=== PATIENT | male | born 1970 | race Caucasian/White ===

== ENCOUNTER 2017-10-14 06:57 | Observation (INO) ==
--- NOTE | 2017-10-14 07:34 | ED ---
HPI General Chief Complaint: Chest Pain Stated Complaint: chest pains, left arm pain Time Seen by Provider: 10/14/17 07:17 Source: patient History of Present Illness HPI narrative: This patient complains of chest pain. He woke up in the middle night around 2 or 3 AM with a sternal chest heaviness. It lasted about 30 minutes and resolved. It has not reoccurred. Today he is pain-free.He has no history of cardiac disease. He is a hypertensive patient. Severity was moderate. No alleviating factors.No exacerbating factors. Complete Quality Measures for STEMI Alert Patients Related Data Home Medications Medication Instructions Recorded Confirmed Plavix 75 mg PO DAILY 10/14/17 10/14/17 amlodipine 5 mg PO DAILY 10/14/17 10/14/17 hydrochlorothiazide 12.5 mg PO DAILY 10/14/17 10/14/17 metoprolol succinate 50 mg PO DAILY 10/14/17 10/14/17 Allergies Allergy/AdvReac Type Severity Reaction Status Date / Time No Known Allergies Allergy Unverified 10/14/17 07:13 Review of Systems Except as stated in HPI: all other systems reviewed are negative [facility] Medical History Medical History Hypertension (Acute) Stroke (Acute) Surgical History Surgical History No history of previous surgery (Acute) Social History Social History Second Hand Smoke Exposure: No Smoking Status: Never smoker How Often Do You Have a Drink Containing Alcohol: Never Recent Travel in [facility] within the Last 8 Weeks: No Recent Out of Country Travel within the Last 8 Weeks: No Immunization History Tetanus Immunization: <5 Years Hx Influenza Vaccine This Season: Yes Exam Narrative Exam Narrative: GENERAL: Well-nourished, well-developed patient in no apparent distress. SKIN: Focused skin assessment reveals no rash and nodules. Skin is Warm and dry. HEAD: Atraumatic. Normocephalic. EYES: Pupils equal and round. No scleral icterus. No injection or drainage. ENT: No nasal bleeding or discharge. Mucous membranes pink and moist. NECK: Trachea midline. No JVD. CARDIOVASCULAR: Regular rate and rhythm. No murmur appreciated. RESPIRATORY: No accessory muscle use. Clear to auscultation. Breath sounds equal bilaterally. GASTROINTESTINAL: Abdomen soft, non-tender, nondistended. Hepatic and splenic margins not palpable. MUSCULOSKELETAL: No obvious deformities. No clubbing. No cyanosis. No edema. NEUROLOGICAL: Awake and alert. No obvious cranial nerve deficits. Motor grossly within normal limits. Normal speech. PSYCHIATRIC: Appropriate mood and affect; insight and judgment normal. Course Initial Documented Vital Signs Temperature 98.7 F 10/14/17 07:00 Pulse Rate 105 H 10/14/17 07:00 Respiratory Rate 18 10/14/17 07:00 Blood Pressure 172/99 H 10/14/17 07:00 Pulse Oximetry 98 10/14/17 07:00 Last Documented Vital Signs Temperature 98.7 F 10/14/17 07:00 Pulse Rate 105 H 10/14/17 09:33 Respiratory Rate 14 10/14/17 09:33 Blood Pressure 180/93 H 10/14/17 09:33 Pulse Oximetry 99 10/14/17 09:35 Medical Decision Making MDM Narrative Medical decision making narrative: GENERAL: Well-nourished, well-developed patient in no apparent distress. SKIN: Focused skin assessment reveals no rash and nodules. Skin is Warm and dry. HEAD: Atraumatic. Normocephalic. EYES: Pupils equal and round. No scleral icterus. No injection or drainage. ENT: No nasal bleeding or discharge. Mucous membranes pink and moist. I reviewed the EKG which shows sinus rhythm with no ST elevation IV placed and labs sent. I gave him an aspirin. He has not had any prior stress testing or cardiac evaluation. I reviewed the chest x-ray which is normal. Patient will be a 23 hour observation in the chest pain center in order to rule out cardiac cause of his symptoms. He is agreeable. Differential Diagnosis Differential Diagnosis: Differential diagnosis includes NM, angina, pericarditis , pleurisy, GERD, anxiety. Medical Records Medical records reviewed: Yes I reviewed the patient's medical records. Lab Data Lab results reviewed: Yes I reviewed the patient's lab results. Result diagrams: 10/14/17 07:30 10/14/17 07:30 Lab Results 10/14/17 10/14/17 10/14/17 Range/Units 07:30 07:30 07:30 WBC 10.6 (4.0-11.0) th/mm3 RBC 5.25 (4.50-5.90) mil/mm3 Hgb 15.6 (13.0-17.0) gm/dL Hct 44.9 (39.0-51.0) % MCV 85.5 (80.0-100.0) fL MCH 29.7 (27.0-34.0) pg MCHC 34.8 (32.0-36.0) % RDW 13.3 (11.6-17.2) % Plt Count 245 (150-450) th/mm3 MPV 8.3 (7.0-11.0) fL Neut % (Auto) 83.5 H (16.0-70.0) % Lymph % (Auto) 10.3 (9.0-44.0) % Brown % (Auto) 5.1 (0.0-8.0) % Eos % (Auto) 0.4 (0.0-4.0) % Baso % (Auto) 0.7 (0.0-2.0) % Neut # (Auto) 8.9 H (1.8-7.7) th/mm3 Lymph # (Auto) 1.1 (1.0-4.8) th/mm3 Brown # (Auto) 0.5 (0.0-0.9) th/mm3 Eos # (Auto) 0.0 (0.0-0.4) th/mm3 Baso # (Auto) 0.1 (0.0-0.2) th/mm3 WBC Differential . Differential Comment Auto diff final PT 10.7 (9.8-11.6) sec INR 1.1 Ratio APTT 25.3 (24.3-30.1) sec Sodium 136 (136-145) meq/L Potassium 3.8 (3.5-5.1) meq/L Chloride 99 (98-107) meq/L Carbon Dioxide 23.9 (21.0-32.0) meq/L Anion Gap 13 (5-15) meq/L BUN 20 H (7-18) mg/dL Creatinine 1.37 H (0.60-1.30) mg/dL Estimated GFR 55 L (>89) mL/min Random Glucose 118 H (74-106) mg/dL Calcium 9.0 (8.5-10.1) mg/dL Total Creatine Kinase 110 (39-308) U/L CK-MB (CK-2) 1.2 (0.5-3.6) ng/mL Troponin I Less than 0.02 L (0.02-0.05) ng/mL Imaging Data Radiologist's impression: ITS Impressions Chest X-Ray 10/14/17 07:27 CONCLUSION: No acute cardiopulmonary disease Discharge Plan Discharge Disposition Patient Disposition: 30 Still Patient Physicians Team ED Provider: Lakhwinder Alanis Primary Care Provider: NON STAFF,PROVIDER Rxs /Orders / Referrals /Forms Prescriptions: No Action Plavix 75 mg PO DAILY RF: 0 amlodipine 5 mg Tablet 5 mg PO DAILY RF: 0 hydrochlorothiazide 12.5 mg Capsule 12.5 mg PO DAILY RF: 0 metoprolol succinate 50 mg PO DAILY RF: 0 Discharge Instructions Patient Printed Instructions: Chest Pain (ED) Discharge Interventions Interventions: Vital Signs Last Done: 10/14/17 07:19 Status ED Status: With Doctor
[2017-10-14 07:55] LABS: Baso # (Auto) 0.1 th/mm3 (0.0-0.2); Baso % (Auto) 0.7 % (0.0-2.0); Eos % (Auto) 0.4 % (0.0-4.0); Hematocrit 44.9 % (39.0-51.0); Hemoglobin 15.6 gm/dL (13.0-17.0); Lymph # (Auto) 1.1 th/mm3 (1.0-4.8); Lymph % (Auto) 10.3 % (9.0-44.0); Mean Corpuscular HGB Conc 34.8 % (32.0-36.0); Mean Corpuscular Hemoglobin 29.7 pg (27.0-34.0); Mean Corpuscular Volume 85.5 fL (80.0-100.0); Mean Platelet Volume 8.3 fL (7.0-11.0); Mono # (Auto) 0.5 th/mm3 (0.0-0.9); Mono % (Auto) 5.1 % (0.0-8.0); Neut # (Auto) 8.9 th/mm3 (1.8-7.7); Neut % (Auto) 83.5 % (16.0-70.0); Platelet Count 245 th/mm3 (150-450); Red Blood Count 5.25 mil/mm3 (4.50-5.90); Red Cell Distribution Width 13.3 % (11.6-17.2); White Blood Count 10.6 th/mm3 (4.0-11.0)
[2017-10-14 08:07] LABS: Activated Partial Thrombo Time 25.3 sec (24.3-30.1); INR 1.1 Ratio; Prothrombin Time 10.7 sec (9.8-11.6)
[2017-10-14 08:18] LABS: Anion Gap 13 meq/L (5-15); Blood Urea Nitrogen 20 mg/dL (7-18); Carbon Dioxide 23.9 meq/L (21.0-32.0); Chloride 99 meq/L (98-107); Glomerular Filtration Rate 55 mL/min (>89); Glucose,Random 118 mg/dL (74-106); Potassium 3.8 meq/L (3.5-5.1); Sodium 136 meq/L (136-145)
[2017-10-14 08:22] LABS: Creatine Kinase 110 U/L (39-308)
[2017-10-14 08:34] LABS: Creatine Kinase MB 1.2 ng/mL (0.5-3.6)
--- NOTE | 2017-10-14 08:37 | XR ---
EXAM DATE: 10/14/2017 8:33 AM EDT AGE/SEX: 47 years / Male INDICATIONS: Chest Pain since 2 am CLINICAL DATA: This is the patient's initial encounter. Patient reports that signs and symptoms have been present for 1 day and indicates a pain score of 6/10. MEDICAL/SURGICAL HISTORY: None. None. COMPARISON: No prior exams available for comparison. FINDINGS: A single AP view of the chest demonstrates the lungs to be symmetrically aerated without evidence of mass, infiltrate or effusion. Loop recorder device overlies the left chest. The cardiomediastinal co ntours are unremarkable. Osseous structures are intact. CONCLUSION: No acute cardiopulmonary disease Electronically signed by: Samy Upton MD 10/14/2017 8:36 AM EDT
[2017-10-14] MEDS ORDERED: Acetaminophen 500 MG Tablet PO PRN (12:04)
[2017-10-14] MEDS ORDERED: ALPRAZolam 0.25 MG Tablet PO PRN (12:04)
--- NOTE | 2017-10-14 12:45 | P.HPCA ---
History of Present Illness Primary Care Physician: PROVIDER NON STAFF Chief Complaint: CHEST PAIN - Diagnosis (1) Chest pain (2) HTN (hypertension) (3) Diabetes (4) History of CVA (cerebrovascular accident) - Inpatient Certification If this patient has been admitted as an Inpatient: I certify that the inpatient services were ordered in accordance with Medicare regulations governing the order. This includes certification that hospital inpatient services are reasonable and necessary and in the case of services not specified as inpatient-only under 42 CFR 419.22(n), that they are appropriately provided as inpatient services in accordance to with the 2-midnight benchmark under 43 CFR 412.3(e) Review of Systems General: Patient denies fevers, chills, and recent travel. HEENT: Patient denies headache, sore throat, difficulty swallowing. Cardiovascular: Has the chest discomfort as mentioned above. Denies sensation of heart beating rapidly or irregularly. No syncope. Denies diaphoresis. Respiratory: Denies shortness of breath or inspirational chest discomfort. Denies coughing wheezing or hemoptysis. GI: Patient denies nausea, vomiting, diarrhea, abdominal pain, bloody stools. Musculoskeletal: Patient denies joint pain or edema. Denies calf pain or edema. Neurovascular: Patient denies numbness, tingling, weakness in extremities. Denies headache. Endocrine: Denies polyuria and polydipsia. Hematologic: Denies easy bruising. Skin: Denies rash or itching. PMFSH - History History Provided By: Patient - Medical History Medical History: Medical History (Last Updated 10/14/17 @ 07:15 by Siri Townsend) Hypertension Stroke - Surgical History Surgical History: Surgical History (Last Updated 10/14/17 @ 07:17 by Siri Townsend) No history of previous surgery - Tobacco History Second Hand Smoke Exposure: No Smoking Status: Never smoker - Alcohol History How Often Do You Have a Drink Containing Alcohol: Never - Travel History Recent Travel in the [place] Within the Last 8 Weeks: No Recent Travel Out of the Country Within the Last 8 Weeks: No - Immunization History Tetanus Immunization: <5 Years Hx Influenza Vaccine This Season: Yes Medications and Allergies Active Medications: Active Medications Acetaminophen (Tylenol) 500 mg PO Q4H PRN PRN Reason: PAIN 1-5 Hydrocodone Bitart/Acetaminophen ([place] 7.5/325) 1 tab PO Q4H PRN PRN Reason: PAIN SCALE 6-10 Alprazolam (Xanax) 0.25 mg PO Q8H PRN PRN Reason: ANXIETY Amlodipine Besylate (Norvasc) 5 mg PO DAILY [facility] Aspirin (Aspirin) 325 mg PO DAILY [facility] Clopidogrel Bisulfate (Plavix) 75 mg PO DAILY [facility] Hydrochlorothiazide (Microzide) 12.5 mg PO DAILY [facility] Metoprolol Succinate (Toprol Xl) 50 mg PO DAILY [facility] Sodium Chloride (Ns Flush) 2 ml IV.FLUSH UNSCH PRN PRN Reason: FLUSH AFTER USING IV ACCESS Sodium Chloride (Ns Flush) 2 ml IV.FLUSH BID ROBINA Sodium Chloride (Ns Flush) 2 ml IV.FLUSH PRN PRN PRN Reason: FLUSH AFTER USING IV ACCESS Allergies Allergy/AdvReac Type Severity Reaction Status Date / Time No Known Allergies Allergy Unverified 10/14/17 07:13 Home Medications Medication Instructions Recorded Confirmed Type amlodipine 5 mg PO DAILY 10/14/17 10/14/17 History clopidogrel [Plavix] 75 mg PO DAILY 10/14/17 10/14/17 History hydrochlorothiazide 12.5 mg PO DAILY 10/14/17 10/14/17 History metoprolol succinate 50 mg PO DAILY 10/14/17 10/14/17 History Exam Vital signs: Vital Signs 10/14/17 07:00 10/14/17 07:13 10/14/17 07:19 Temperature 98.7 F Pulse Rate 105 H 91 H 91 H Respiratory Rate 18 18 18 Blood Pressure 172/99 H Pulse Oximetry 98 98 99 10/14/17 09:33 10/14/17 09:35 10/14/17 10:19 Temperature Pulse Rate 105 H 94 H Respiratory Rate 14 17 Blood Pressure 180/93 H 154/81 H Pulse Oximetry 98 99 98 10/14/17 11:08 Temperature Pulse Rate 86 Respiratory Rate 15 Blood Pressure 160/87 H Pulse Oximetry 98 Intake & Output 10/13/17 10/14/17 10/14/17 18:59 06:59 18:59 Weight 113.398 kg Narrative: GENERAL: This is a well-nourished, well-developed patient, in no apparent distress. Patient speaks in clear complete sentences. Patient is pleasant. HEENT: Head is atraumatic and normocephalic. Neck is supple without lymphadenopathy and trachea is midline. No JVD or carotid bruits. CARDIOVASCULAR: Regular rate and rhythm without murmurs, gallops, or rubs. RESPIRATORY: Clear to auscultation. Breath sounds equal bilaterally. No wheezes , rales, or rhonchi. Left lateral chest wall is tender. No use of accessory muscles. GASTROINTESTINAL: Abdomen is nontender, nondistended. Abdomen soft. No obvious pulsatile mass or bruit. No CVA tenderness. Strong femoral pulses bilaterally. Normal bowel sounds in all quadrants. MUSCULOSKELETAL: Patient is moving upper and lower extremities freely. No calf tenderness or edema, no Homans sign. Strong pulses in upper and lower extremities. NEUROLOGICAL: Patient is alert and oriented. Cranial nerves 2-12 are grossly intact. No focal deficits and speech is clear. SKIN: No rash and turgor is normal. Results 10/14/17 07:30 10/14/17 07:30 Cardiac Enzymes 10/14/17 Range/Units 07:30 CK-MB (CK-2) 1.2 (0.5-3.6) ng/mL Troponin I Less than 0.02 L (0.02-0.05) ng/mL Coagulation 10/14/17 Range/Units 07:30 PT 10.7 (9.8-11.6) sec APTT 25.3 (24.3-30.1) sec CBC 10/14/17 Range/Units 07:30 WBC 10.6 (4.0-11.0) th/mm3 RBC 5.25 (4.50-5.90) mil/mm3 Hgb 15.6 (13.0-17.0) gm/dL Hct 44.9 (39.0-51.0) % Plt Count 245 (150-450) th/mm3 Neut # (Auto) 8.9 H (1.8-7.7) th/mm3 Lymph # (Auto) 1.1 (1.0-4.8) th/mm3 [place] # (Auto) 0.5 (0.0-0.9) th/mm3 Eos # (Auto) 0.0 (0.0-0.4) th/mm3 Baso # (Auto) 0.1 (0.0-0.2) th/mm3 Comprehensive Metabolic Panel 10/14/17 Range/Units 07:30 Sodium 136 (136-145) meq/L Potassium 3.8 (3.5-5.1) meq/L Chloride 99 (98-107) meq/L Carbon Dioxide 23.9 (21.0-32.0) meq/L BUN 20 H (7-18) mg/dL Creatinine 1.37 H (0.60-1.30) mg/dL Calcium 9.0 (8.5-10.1) mg/dL Intake and Output 10/13/17 10/14/17 10/14/17 22:59 06:59 14:59 Other: Weight 113.398 kg Patient Weight 10/15/17 06:59 Weight 113.398 kg EKG interpretations - EKG EKG shows: sinus rhythm (Initial EKG is sinus rhythm rate of [address] segment depressions or elevations.) Caprini VTE Risk Assessment Caprini VTE Risk Assessment: No/Low Risk (score <= 1) Caprini Risk Assessment Model: Point Value = 1 Point Value = 2 Point Value = 3 Point Value = 5 Age 41-60 Minor surgery BMI > 25 kg/m2 Swollen legs Varicose veins or History of unexplained or recurrent spontaneous Oral contraceptives or hormone replacement Sepsis (< 1 month) Serious lung disease, including pneumonia (< 1 month) Abnormal pulmonary function Acute myocardial infarction Congestive heart failure (< 1 month) History of inflammatory bowel disease Medical patient at bed rest Age 61-74 Arthroscopic surgery Major open surgery (> 45 min) Laparoscopic surgery (> 45 min) Malignancy Confined to bed (> 72 hours) Immobilizing plaster cast Central venous access Age >= 75 History of VTE Family history of VTE Factor V Leiden Prothrombin [id number] Lupus anticoagulant Anticardiolipin antibodies Elevated serum homocysteine Heparin-induced thrombocytopenia Other congenital or acquired thrombophilia Stroke (< 1 month) Elective arthroplasty Hip, pelvis, or leg fracture Acute spinal cord injury (< 1 month) Prophylaxis Regimen: Total Risk Factor Score Risk Level Prophylaxis Regimen 0-1 Low Early ambulation 2 Moderate Order ONE of the following: *Sequential Compression Device (SCD) *Heparin 5000 units SQ BID 3-4 Higher Order ONE of the following medications: *Heparin 5000 units SQ TID *Enoxaparin/Lovenox 40 mg SQ daily (WT < 150 kg, CrCl > 30 mL/min) *Enoxaparin/Lovenox 30 mg SQ daily (WT < 150 kg, CrCl > 10-29 mL/min) *Enoxaparin/Lovenox 30 mg SQ BID (WT < 150 kg, CrCl > 30 mL/min) AND/OR *Sequential Compression Device (SCD) 5 or more Highest Order ONE of the following medications: *Heparin 5000 units SQ TID (Preferred with Epidurals) *Enoxaparin/Lovenox 40 mg SQ daily (WT < 150 kg, CrCl > 30 mL/min) *Enoxaparin/Lovenox 30 mg SQ daily (WT < 150 kg, CrCl > 10-29 mL/min) *Enoxaparin/Lovenox 30 mg SQ BID (WT < 150 kg, CrCl > 30 mL/min) AND *Sequential Compression Device (SCD) Assessment and Plan - Assessment (1) Chest pain Code(s): R07.9 - Chest pain, unspecified Status: Acute (2) HTN (hypertension) Code(s): I10 - Essential (primary) hypertension Status: Acute (3) Diabetes Code(s): E11.9 - Type 2 diabetes mellitus without complications Status: Acute (4) History of CVA (cerebrovascular accident) Code(s): Z86.73 - Personal history of transient ischemic attack (TIA), and cerebral infarction without residual deficits Status: Acute - Plan * Chest pain: Patient will continue to have serial cardiac enzymes and EKGs for ruling out purposes. He will be seen by Dr. Guido Lange of cardiology in the chest pain center. He hurt he had coffee this morning so he will need to spend evening in the chest pain center for chemical stress test tomorrow. Patient will have a Lexiscan in the morning if he rules out. He will be discharged home if the stress test is nonischemic with instructions to follow- up with PCP. Return to ED for interval issues. * Diabetes: Patient states history of diabetes. States he has never been on medication. Patient should follow diabetic diet and follow-up with PCP for further management. Also with history of diabetes, patient should be on statin therapy. He should discuss this with his PCP. * Hypertension: Continue medication. * History of CVA: Continue medication. Patient is stable at this time. He is agreeable to this plan.
[2017-10-14 14:01] LABS: Creatine Kinase 105 U/L (39-308)
[2017-10-14 16:39] LABS: Creatine Kinase 216 U/L (39-308)
--- NOTE | 2017-10-14 21:42 | ECG ---
Date Performed: 10/14/2017 Time Performed: 07:17:07 PTAGE: 47 years EKG: Sinus rhythm BORDERLINE LEFT AXIS DEVIATION NONSPECIFIC T-WAVE ABNORMALITY BORDERLINE ECG NO PREVIOUS TRACING DOCTOR: Madelin Rodriguez Interpretating Date/Time 10/14/2017 21:40:46
[2017-10-15] MEDS ORDERED: Aspirin 325 MG Tablet PO SCH (09:00)
[2017-10-15] MEDS ORDERED: amLODIPine 5 MG Tablet PO SCH (09:00)
--- NOTE | 2017-10-15 10:10 | ECG ---
Date Performed: 10/14/2017 Time Performed: 13:05:22 PTAGE: 47 years EKG: Sinus rhythm BORDERLINE LEFT AXIS DEVIATION BORDERLINE ECG PREVIOUS TRACING : 10/14/2017 07.17 DOCTOR: Jovanny Echavarria Interpretating Date/Time 10/15/2017 10:10:16
--- NOTE | 2017-10-15 10:10 | ECG ---
Date Performed: 10/14/2017 Time Performed: 15:22:33 PTAGE: 47 years EKG: Sinus rhythm INCOMPLETE RIGHT BUNDLE BRANCH BLOCK BORDERLINE ECG INTERPRETATION BASED ON A DEFAULT AGE OF 39 YEAR S NO PREVIOUS TRACING DOCTOR: Jovanny Echavarria Interpretating Date/Time 10/15/2017 10:10:04
== END 2017-10-15 04:10 | disposition left against medical advice (07) ==
LOC: NEPFCDU 06:57 → NEDA 06:57 → NEPE 06:57 → NEPFCDU 13:09
PROVIDERS: ADMIT Internal Medicine Cardiovascular Disease; ATTEND Internal Medicine Cardiovascular Disease
DX: Z86.73 Personal history of transient ischemic attack (TIA), and cerebral infarction without residual deficits; E11.9 Type 2 diabetes mellitus without complications; I10 Essential (primary) hypertension; Z79.899 Other long term (current) drug therapy; Z79.01 Long term (current) use of anticoagulants; R07.9 Chest pain, unspecified

== ENCOUNTER 2017-10-16 06:50 | Observation (INO) ==
--- NOTE | 2017-10-16 07:45 | ED ---
HPI General Chief Complaint: Chest Pain Stated Complaint: chest pain/blood presurre is up Time Seen by Provider: 10/16/17 07:08 Source: patient Mode of arrival: ambulatory Limitations: no limitations History of Present Illness HPI narrative: 39-year-old male complains of chest pain. Patient states that he has intermittent chest pain for the past 3 days. Patient was seen in emergency room 2 days ago and was advised to be admitted to chest pain center. Patient refused admission and left AMA. Patient states that he started having left-sided chest pain last night. Patient states that the pain started around 4 :00 in the morning. Patient states that the pain is pressure pain localized left chest. Patient denies any pain radiation. Patient denies palpitation nausea diaphoresis. Patient denies any shortness of breath. Patient states that the pain lasted about 5 minutes and resolved completely. Patient denies any chest pain now. Patient has history hypertension. Patient denies history of diabetes or hyperlipidemia. Patient is a non-smoker. Patient denies family history of heart disease. Patient states he drank coffee around 4:00 this morning. MD complaint: chest pain Complete Quality Measures for STEMI Alert Patients STEMI Alert: No Onset (ago): hour(s) Duration: intermittent and now resolved Onset: during rest Pain location: left chest Severity: mild Severity scale (1-10): 4 Quality: tightness and heaviness Pain radiation: none Relieving factors: nothing Exacerbating factors: nothing Treatments prior to arrival chest pain: none Related Data Home Medications Medication Instructions Recorded Confirmed amlodipine 5 mg PO DAILY 10/14/17 10/16/17 clopidogrel [Plavix] 75 mg PO DAILY 10/14/17 10/16/17 hydrochlorothiazide 12.5 mg PO DAILY 10/14/17 10/16/17 metoprolol succinate 50 mg PO DAILY 10/14/17 10/16/17 Allergies Allergy/AdvReac Type Severity Reaction Status Date / Time No Known Allergies Allergy Verified 10/16/17 07:09 Review of Systems Except as stated in HPI: all other systems reviewed are negative [facility] Medical History Medical History Diabetes (Acute) Hypertension (Acute) Stroke (Acute) Surgical History Surgical History No history of previous surgery (Acute) Social History Social History Substance History: No History of Abuse Second Hand Smoke Exposure: Yes Smoking Status: Never smoker How Often Do You Have a Drink Containing Alcohol: Never Recent Travel in [facility] within the Last 8 Weeks: No Recent Out of Country Travel within the Last 8 Weeks: No Immunization History Tetanus Immunization: >5 Years Hx Influenza Vaccine This Season: Yes Exam Narrative Exam Narrative: GENERAL: Well-nourished, well-developed patient. SKIN: Focused skin assessment warm/dry. HEAD: Normocephalic. EYES: No scleral icterus. No injection or drainage. NECK: Supple, trachea midline. No JVD or lymphadenopathy. CARDIOVASCULAR: Regular rate and rhythm without murmurs, gallops, or rubs. RESPIRATORY: Breath sounds equal bilaterally. No accessory muscle use. GASTROINTESTINAL: Abdomen soft, non-tender, nondistended. MUSCULOSKELETAL: No cyanosis, or edema. BACK: Nontender without obvious deformity. No CVA tenderness. Neurologic exam normal. Course Initial Documented Vital Signs Temperature 99.6 F 10/16/17 06:56 Respiratory Rate 20 10/16/17 06:56 Blood Pressure 182/91 H 10/16/17 06:56 Pulse Oximetry 97 10/16/17 06:56 Last Documented Vital Signs Temperature 99.1 F 10/17/17 08:00 Pulse Rate 73 10/17/17 08:30 Respiratory Rate 20 10/17/17 08:00 Blood Pressure 157/96 H 10/17/17 08:00 Pulse Oximetry 96 10/17/17 08:00 Medical Decision Making [facility] Narrative Medical decision making narrative: 39-year-old male with chest pain. Patient was seen in emergency room 2 days ago for chest pain. Patient was advised to be admitted chest pain center. Patient refused admission. Patient left AMA. Patient returned today for recurrent chest pain. Differential Diagnosis Differential Diagnosis: Differential diagnosis including musculoskeletal, angina , MA, PE, pneumothorax. Lab Data Result diagrams: 10/16/17 07:16 10/16/17 07:16 Lab Results 10/16/17 10/16/17 10/16/17 Range/Units 07:16 07:16 07:16 WBC 9.4 (4.0-11.0) th/mm3 RBC 5.26 (4.50-5.90) mil/mm3 Hgb 15.9 (13.0-17.0) gm/dL Hct 45.0 (39.0-51.0) % MCV 85.5 (80.0-100.0) fL MCH 30.3 (27.0-34.0) pg MCHC 35.4 (32.0-36.0) % RDW 13.1 (11.6-17.2) % Plt Count 265 (150-450) th/mm3 MPV 8.1 (7.0-11.0) fL Neut % (Auto) 80.2 H (16.0-70.0) % Lymph % (Auto) 12.2 (9.0-44.0) % Harper % (Auto) 6.5 (0.0-8.0) % Eos % (Auto) 0.5 (0.0-4.0) % Baso % (Auto) 0.6 (0.0-2.0) % Neut # (Auto) 7.5 (1.8-7.7) th/mm3 Lymph # (Auto) 1.1 (1.0-4.8) th/mm3 Harper # (Auto) 0.6 (0.0-0.9) th/mm3 Eos # (Auto) 0.0 (0.0-0.4) th/mm3 Baso # (Auto) 0.1 (0.0-0.2) th/mm3 WBC Differential . Differential Comment Auto diff final PT 11.0 (9.8-11.6) sec INR 1.1 Ratio APTT 24.9 (24.3-30.1) sec Sodium (136-145) meq/L Potassium (3.5-5.1) meq/L Chloride (98-107) meq/L Carbon Dioxide (21.0-32.0) meq/L Anion Gap (5-15) meq/L BUN (7-18) mg/dL Creatinine (0.60-1.30) mg/dL Estimated GFR (>89) mL/min POC Glucose (68-110) mg/dl Random Glucose (74-106) mg/dL Calcium (8.5-10.1) mg/dL Magnesium (1.5-2.5) mg/dL Total Bilirubin (0.2-1.0) mg/dL AST (15-37) U/L ALT (12-78) U/L Alkaline Phosphatase (45-117) U/L Total Creatine Kinase (39-308) U/L CK-MB (CK-2) (0.5-3.6) ng/mL CK-MB (CK-2) % (0.0-4.0) % Troponin I (0.02-0.05) ng/mL Total Protein (6.4-8.2) g/dL Albumin (3.4-5.0) g/dL Lipase Cancelled 10/16/17 10/16/17 10/16/17 Range/Units 07:16 07:16 13:00 WBC (4.0-11.0) th/mm3 RBC (4.50-5.90) mil/mm3 Hgb (13.0-17.0) gm/dL Hct (39.0-51.0) % MCV (80.0-100.0) fL MCH (27.0-34.0) pg MCHC (32.0-36.0) % RDW (11.6-17.2) % Plt Count (150-450) th/mm3 MPV (7.0-11.0) fL Neut % (Auto) (16.0-70.0) % Lymph % (Auto) (9.0-44.0) % Harper % (Auto) (0.0-8.0) % Eos % (Auto) (0.0-4.0) % Baso % (Auto) (0.0-2.0) % Neut # (Auto) (1.8-7.7) th/mm3 Lymph # (Auto) (1.0-4.8) th/mm3 Harper # (Auto) (0.0-0.9) th/mm3 Eos # (Auto) (0.0-0.4) th/mm3 Baso # (Auto) (0.0-0.2) th/mm3 WBC Differential Differential Comment PT (9.8-11.6) sec INR Ratio APTT (24.3-30.1) sec Sodium 138 (136-145) meq/L Potassium 3.8 (3.5-5.1) meq/L Chloride 103 (98-107) meq/L Carbon Dioxide 24.4 (21.0-32.0) meq/L Anion Gap 11 (5-15) meq/L BUN 15 (7-18) mg/dL Creatinine 1.42 H (0.60-1.30) mg/dL Estimated GFR 53 L (>89) mL/min POC Glucose (68-110) mg/dl Random Glucose 114 H (74-106) mg/dL Calcium 8.7 (8.5-10.1) mg/dL Magnesium 2.2 (1.5-2.5) mg/dL Total Bilirubin 0.8 (0.2-1.0) mg/dL AST 17 (15-37) U/L ALT 26 (12-78) U/L Alkaline Phosphatase 91 (45-117) U/L Total Creatine Kinase 329 H 248 (39-308) U/L CK-MB (CK-2) 2.0 1.4 (0.5-3.6) ng/mL CK-MB (CK-2) % 0.6 (0.0-4.0) % Troponin I Less than 0.02 L Less than 0.02 L (0.02-0.05) ng/mL Total Protein 8.1 (6.4-8.2) g/dL Albumin 4.2 (3.4-5.0) g/dL Lipase 114 10/16/17 10/16/17 10/17/17 Range/Units 17:58 18:02 00:45 WBC (4.0-11.0) th/mm3 RBC (4.50-5.90) mil/mm3 Hgb (13.0-17.0) gm/dL Hct (39.0-51.0) % MCV (80.0-100.0) fL MCH (27.0-34.0) pg MCHC (32.0-36.0) % RDW (11.6-17.2) % Plt Count (150-450) th/mm3 MPV (7.0-11.0) fL Neut % (Auto) (16.0-70.0) % Lymph % (Auto) (9.0-44.0) % Harper % (Auto) (0.0-8.0) % Eos % (Auto) (0.0-4.0) % Baso % (Auto) (0.0-2.0) % Neut # (Auto) (1.8-7.7) th/mm3 Lymph # (Auto) (1.0-4.8) th/mm3 Harper # (Auto) (0.0-0.9) th/mm3 Eos # (Auto) (0.0-0.4) th/mm3 Baso # (Auto) (0.0-0.2) th/mm3 WBC Differential Differential Comment PT (9.8-11.6) sec INR Ratio APTT (24.3-30.1) sec Sodium (136-145) meq/L Potassium (3.5-5.1) meq/L Chloride (98-107) meq/L Carbon Dioxide (21.0-32.0) meq/L Anion Gap (5-15) meq/L BUN (7-18) mg/dL Creatinine (0.60-1.30) mg/dL Estimated GFR (>89) mL/min POC Glucose 83 (68-110) mg/dl Random Glucose (74-106) mg/dL Calcium (8.5-10.1) mg/dL Magnesium (1.5-2.5) mg/dL Total Bilirubin (0.2-1.0) mg/dL AST (15-37) U/L ALT (12-78) U/L Alkaline Phosphatase (45-117) U/L Total Creatine Kinase 231 212 (39-308) U/L CK-MB (CK-2) (0.5-3.6) ng/mL CK-MB (CK-2) % (0.0-4.0) % Troponin I Less than 0.02 L Less than 0.02 L (0.02-0.05) ng/mL Total Protein (6.4-8.2) g/dL Albumin (3.4-5.0) g/dL Lipase Imaging Data Radiologist's impression: ITS Impressions Myocardial Perfusion Scan Nuc Med 10/17/17 07:32 CONCLUSION: 1. No reversible perfusion defects to suggest ischemia. 2. Ejection fraction 49%. ECG Data EKG Prior to Arrival: No Attestation: I personally reviewed and interpreted this ECG as follows: (EKG shows sinus rhythm nonspecific ST-T wave change. Rate 95.) Discharge Plan Discharge Disposition Patient Disposition: 01 Discharge Home Discharge Condition Condition: Stable Discharge Order Discharge Orders: Discharge Order (Routine); Ordered 10/17/17 Ordered By: Wilner Rudolph Discharge Details Anticipated Discharge Date: 10/17/17 Discharge Problem: Chest pain Physicians Team ED Provider: Colin Mcgee Primary Care Provider: NON STAFF,PROVIDER Attending Provider: Guido Lange Status ED Status: Left Department Discharge Information Discharge Date/Time: 10/16/17 14:45
[2017-10-16 07:46] LABS: Baso # (Auto) 0.1 th/mm3 (0.0-0.2); Baso % (Auto) 0.6 % (0.0-2.0); Eos % (Auto) 0.5 % (0.0-4.0); Hemoglobin 15.9 gm/dL (13.0-17.0); Lymph # (Auto) 1.1 th/mm3 (1.0-4.8); Lymph % (Auto) 12.2 % (9.0-44.0); Mean Corpuscular HGB Conc 35.4 % (32.0-36.0); Mean Corpuscular Hemoglobin 30.3 pg (27.0-34.0); Mean Corpuscular Volume 85.5 fL (80.0-100.0); Mean Platelet Volume 8.1 fL (7.0-11.0); Mono # (Auto) 0.6 th/mm3 (0.0-0.9); Mono % (Auto) 6.5 % (0.0-8.0); Neut # (Auto) 7.5 th/mm3 (1.8-7.7); Neut % (Auto) 80.2 % (16.0-70.0); Platelet Count 265 th/mm3 (150-450); Red Blood Count 5.26 mil/mm3 (4.50-5.90); Red Cell Distribution Width 13.1 % (11.6-17.2); White Blood Count 9.4 th/mm3 (4.0-11.0)
[2017-10-16 07:53] LABS: Activated Partial Thrombo Time 24.9 sec (24.3-30.1); INR 1.1 Ratio
[2017-10-16 08:04] LABS: Alanine Aminotransferase 26 U/L (12-78); Albumin 4.2 g/dL (3.4-5.0); Anion Gap 11 meq/L (5-15); Aspartate Aminotransferase 17 U/L (15-37); Blood Urea Nitrogen 15 mg/dL (7-18); Calcium 8.7 mg/dL (8.5-10.1); Carbon Dioxide 24.4 meq/L (21.0-32.0); Chloride 103 meq/L (98-107); Glomerular Filtration Rate 53 mL/min (>89); Glucose,Random 114 mg/dL (74-106); Lipase 114 U/L (73-393); Potassium 3.8 meq/L (3.5-5.1); Sodium 138 meq/L (136-145)
[2017-10-16 08:05] LABS: Magnesium 2.2 mg/dL (1.5-2.5)
[2017-10-16 08:06] LABS: Alkaline Phosphatase 91 U/L (45-117); Total Protein 8.1 g/dL (6.4-8.2)
[2017-10-16 08:08] LABS: Creatine Kinase 329 U/L (39-308)
[2017-10-16 08:20] LABS: CKMB Percent 0.6 % (0.0-4.0)
--- NOTE | 2017-10-16 14:05 | ECG ---
Date Performed: 10/16/2017 Time Performed: 07:08:23 PTAGE: 47 years EKG: Sinus rhythm NONSPECIFIC T-WAVE ABNORMALITY BORDERLINE ECG Compared to prior electrocardiogram, borderline Nonspe cific T wave changes are now present . PREVIOUS TRACING : 10/14/2017 15.22 DOCTOR: Leland Garcia Interpretating Date/Time 10/16/2017 14:05:11
[2017-10-16] MEDS ORDERED: ALPRAZolam 0.25 MG Tablet PO PRN (14:23)
[2017-10-16 14:43] LABS: Creatine Kinase 248 U/L (39-308)
[2017-10-16 14:55] LABS: Creatine Kinase MB 1.4 ng/mL (0.5-3.6)
--- NOTE | 2017-10-16 15:24 | P.HPCA ---
History of Present Illness Primary Care Physician: PROVIDER NON STAFF Chief Complaint: Chest pain History of Present Illness: This is a 47-year-old male with history of hypertension, history of CVA, stated history of diabetes but states he has never been on medications with complaint of chest pressure that woke him at 4:00 this morning. It was in the center of his chest. It lasted 5 minutes but states it was very intense. Denies associated shortness of breath or nausea but may been a little diaphoretic. Had a similar episode on 14 October and was admitted to the hospital and was seen in chest pain center but left at 4:00 yesterday morning stating he did not want to wait for the stress test. Now he is willing to wait for stress testing. Unfortunately he had drank some coffee this morning which will prohibit us from doing his stress test today. Again he is now willing to have the stress test tomorrow. Currently denies chest discomfort. Voices compliance with medication that he has been prescribed. States he has never been on statin therapy even with history of CVA. Lifetime non-smoker. Denies alcohol or illicit drug use. Denies family history of CAD. - Diagnosis (1) Chest pain (2) HTN (hypertension) (3) Diabetes (4) History of CVA (cerebrovascular accident) Inpatient Certification: I certify that the inpatient services were ordered in accordance with Medicare regulations governing the order. This includes certification that hospital inpatient services are reasonable and necessary and in the case of services not specified as inpatient-only under 42 CFR 419.22(n), that they are appropriately provided as inpatient services in accordance to with the 2-midnight benchmark under 43 CFR 412.3(e) Review of Systems General: Patient denies fevers, chills, and recent travel. HEENT: Patient denies headache, sore throat, difficulty swallowing. Cardiovascular: Has the chest discomfort as mentioned above. Denies sensation of heart beating rapidly or irregularly. No syncope. May be slightly diaphoretic this morning. Respiratory: Denies shortness of breath or inspirational chest discomfort. Denies coughing wheezing or hemoptysis. GI: Patient denies nausea, vomiting, diarrhea, abdominal pain, bloody stools. Musculoskeletal: Patient denies joint pain or edema. Denies calf pain or edema. Neurovascular: Patient denies numbness, tingling, weakness in extremities. Denies headache. Endocrine: Denies polyuria and polydipsia. Hematologic: Denies easy bruising. Skin: Denies rash or itching. PMFSH - History History Provided By: Patient - Medical History Medical History: Medical History (Last Reviewed 10/16/17 @ 07:42 by Colin Mcgee MD) Diabetes Hypertension Stroke - Surgical History Surgical History: Surgical History (Last Reviewed 10/16/17 @ 07:42 by Colin Mcgee MD) No history of previous surgery - Tobacco History Second Hand Smoke Exposure: No Smoking Status: Never smoker - Alcohol History How Often Do You Have a Drink Containing Alcohol: Monthly or less - Substance Use History Substance History: No History of Abuse - Travel History Recent Travel in the [place] Within the Last 8 Weeks: No Recent Travel Out of the Country Within the Last 8 Weeks: No - Immunization History Tetanus Immunization: >5 Years Hx Influenza Vaccine This Season: Yes Medications and Allergies Active Medications: Active Medications Alprazolam (Xanax) 0.25 mg PO Q8H PRN PRN Reason: ANXIETY Aspirin (Aspirin) 325 mg PO DAILY ROBINA Sodium Chloride (Ns Flush) 2 ml IV.FLUSH BID ROBINA Sodium Chloride (Ns Flush) 2 ml IV.FLUSH UNSCH PRN PRN Reason: FLUSH AFTER USING IV ACCESS Allergies Allergy/AdvReac Type Severity Reaction Status Date / Time No Known Allergies Allergy Verified 10/16/17 07:09 Home Medications Medication Instructions Recorded Confirmed Type amlodipine 5 mg PO DAILY 10/14/17 10/16/17 History clopidogrel [Plavix] 75 mg PO DAILY 10/14/17 10/16/17 History hydrochlorothiazide 12.5 mg PO DAILY 10/14/17 10/16/17 History metoprolol succinate 50 mg PO DAILY 10/14/17 10/16/17 History Exam Vital signs: Vital Signs 10/16/17 06:56 10/16/17 07:12 10/16/17 07:20 Temperature 99.6 F 97.8 F Pulse Rate 89 82 Respiratory Rate 20 18 Blood Pressure 182/91 H 140/97 H Pulse Oximetry 97 97 10/16/17 08:48 10/16/17 10:00 10/16/17 11:00 Temperature 97.7 F 97.8 F 97.8 F Pulse Rate 68 76 62 Respiratory Rate 16 16 16 Blood Pressure 140/84 141/93 H 145/65 H Pulse Oximetry 97 97 98 10/16/17 13:00 10/16/17 14:00 Temperature 97.8 F 97.7 F Pulse Rate 72 69 Respiratory Rate 16 16 Blood Pressure 145/88 H 138/86 Pulse Oximetry Intake & Output 10/15/17 10/16/17 10/16/17 18:59 06:59 18:59 Weight 113.398 kg Narrative: GENERAL: This is a well-nourished, well-developed patient, in no apparent distress. Patient speaks in clear complete sentences. Patient is pleasant. HEENT: Head is atraumatic and normocephalic. Neck is supple without lymphadenopathy and trachea is midline. No JVD or carotid bruits. CARDIOVASCULAR: Regular rate and rhythm without murmurs, gallops, or rubs. RESPIRATORY: Clear to auscultation. Breath sounds equal bilaterally. No wheezes , rales, or rhonchi. Chest wall is nontender. No use of accessory muscles. GASTROINTESTINAL: Abdomen is nontender, nondistended. Abdomen soft. No obvious pulsatile mass or bruit. No CVA tenderness. Strong femoral pulses bilaterally. Normal bowel sounds in all quadrants. MUSCULOSKELETAL: Patient is moving upper and lower extremities freely. No calf tenderness or edema, no Homans sign. Strong pulses in upper and lower extremities. NEUROLOGICAL: Patient is alert and oriented. Cranial nerves 2-12 are grossly intact. No focal deficits and speech is clear. SKIN: No rash and turgor is normal. Results 10/16/17 07:16 10/16/17 07:16 Cardiac Enzymes 10/16/17 10/16/17 10/16/17 Range/Units 07:16 07:16 13:00 AST 17 (15-37) U/L CK-MB (CK-2) 2.0 1.4 (0.5-3.6) ng/mL Troponin I Less than 0.02 L Less than 0.02 L (0.02-0.05) ng/mL Coagulation 10/16/17 Range/Units 07:16 PT 11.0 (9.8-11.6) sec APTT 24.9 (24.3-30.1) sec CBC 10/16/17 Range/Units 07:16 WBC 9.4 (4.0-11.0) th/mm3 RBC 5.26 (4.50-5.90) mil/mm3 Hgb 15.9 (13.0-17.0) gm/dL Hct 45.0 (39.0-51.0) % Plt Count 265 (150-450) th/mm3 Neut # (Auto) 7.5 (1.8-7.7) th/mm3 Lymph # (Auto) 1.1 (1.0-4.8) th/mm3 Riley # (Auto) 0.6 (0.0-0.9) th/mm3 Eos # (Auto) 0.0 (0.0-0.4) th/mm3 Baso # (Auto) 0.1 (0.0-0.2) th/mm3 Comprehensive Metabolic Panel 10/16/17 Range/Units 07:16 Sodium 138 (136-145) meq/L Potassium 3.8 (3.5-5.1) meq/L Chloride 103 (98-107) meq/L Carbon Dioxide 24.4 (21.0-32.0) meq/L BUN 15 (7-18) mg/dL Creatinine 1.42 H (0.60-1.30) mg/dL Calcium 8.7 (8.5-10.1) mg/dL AST 17 (15-37) U/L ALT 26 (12-78) U/L Alkaline Phosphatase 91 (45-117) U/L Total Protein 8.1 (6.4-8.2) g/dL Albumin 4.2 (3.4-5.0) g/dL Intake and Output 10/16/17 10/16/17 10/16/17 06:59 14:59 22:59 Other: Weight 113.398 kg EKG interpretations - EKG EKG shows: sinus rhythm (EKGs are sinus rhythm without significant ST segment depressions or elevations.) Caprini VTE Risk Assessment Caprini VTE Risk Assessment: Moderate/High Risk (score >= 2) Caprini Risk Assessment Model: Point Value = 1 Point Value = 2 Point Value = 3 Point Value = 5 Age 41-60 Minor surgery BMI > 25 kg/m2 Swollen legs Varicose veins or History of unexplained or recurrent spontaneous Oral contraceptives or hormone replacement Sepsis (< 1 month) Serious lung disease, including pneumonia (< 1 month) Abnormal pulmonary function Acute myocardial infarction Congestive heart failure (< 1 month) History of inflammatory bowel disease Medical patient at bed rest Age 61-74 Arthroscopic surgery Major open surgery (> 45 min) Laparoscopic surgery (> 45 min) Malignancy Confined to bed (> 72 hours) Immobilizing plaster cast Central venous access Age >= 75 History of VTE Family history of VTE Factor V Leiden Prothrombin [id number] Lupus anticoagulant Anticardiolipin antibodies Elevated serum homocysteine Heparin-induced thrombocytopenia Other congenital or acquired thrombophilia Stroke (< 1 month) Elective arthroplasty Hip, pelvis, or leg fracture Acute spinal cord injury (< 1 month) Prophylaxis Regimen: Total Risk Factor Score Risk Level Prophylaxis Regimen 0-1 Low Early ambulation 2 Moderate Order ONE of the following: *Sequential Compression Device (SCD) *Heparin 5000 units SQ BID 3-4 Higher Order ONE of the following medications: *Heparin 5000 units SQ TID *Enoxaparin/Lovenox 40 mg SQ daily (WT < 150 kg, CrCl > 30 mL/min) *Enoxaparin/Lovenox 30 mg SQ daily (WT < 150 kg, CrCl > 10-29 mL/min) *Enoxaparin/Lovenox 30 mg SQ BID (WT < 150 kg, CrCl > 30 mL/min) AND/OR *Sequential Compression Device (SCD) 5 or more Highest Order ONE of the following medications: *Heparin 5000 units SQ TID (Preferred with Epidurals) *Enoxaparin/Lovenox 40 mg SQ daily (WT < 150 kg, CrCl > 30 mL/min) *Enoxaparin/Lovenox 30 mg SQ daily (WT < 150 kg, CrCl > 10-29 mL/min) *Enoxaparin/Lovenox 30 mg SQ BID (WT < 150 kg, CrCl > 30 mL/min) AND *Sequential Compression Device (SCD) Assessment and Plan - Assessment (1) Chest pain Code(s): R07.9 - Chest pain, unspecified Status: Acute (2) HTN (hypertension) Code(s): I10 - Essential (primary) hypertension Status: Acute (3) Diabetes Code(s): E11.9 - Type 2 diabetes mellitus without complications Status: Acute (4) History of CVA (cerebrovascular accident) Code(s): Z86.73 - Personal history of transient ischemic attack (TIA), and cerebral infarction without residual deficits Status: Acute - Plan * Chest pain: Patient will continue to have serial cardiac enzymes and EKGs for ruling out purposes. He was seen by Dr. Guido Lange of cardiology in the chest pain center and will undergo a Lexiscan in the morning if he rules out. Patient should follow-up with PCP. Return to ED for interval issues. * Hypertension: Continue medication. * History of CVA: Continue medication. * State history of diabetes: Patient should follow diabetic diet. He will be on sliding scale insulin coverage while in chest pain center. Should discuss further with PCP after discharge. Patient is stable at this time. He is agreeable to this plan.
[2017-10-16] MEDS ORDERED: Acetaminophen 500 MG Tablet PO PRN (15:25)
[2017-10-16] MEDS ORDERED: Dextrose 50% in Water 50 ML Vial IV.PUSH PRN (16:15)
[2017-10-16] MEDS: Insulin NovoLIN Regular Correctional Sugar Inj SQ SCH (18:03)
[2017-10-16 19:19] LABS: Creatine Kinase 231 U/L (39-308)
[2017-10-17 01:36] LABS: Creatine Kinase 212 U/L (39-308)
[2017-10-17] MEDS: Insulin NovoLIN Regular Correctional Sugar Inj SQ SCH ×2 (02:56→08:15)
[2017-10-17] MEDS ORDERED: amLODIPine 5 MG Tablet PO SCH (09:00)
[2017-10-17] MEDS ORDERED: Aspirin 325 MG Tablet PO SCH (09:00)
[2017-10-17] MEDS ORDERED: Regadenoson Inj 0.4 MG/5 ML Syringe IV.PUSH ONE (10:33)
--- NOTE | 2017-10-17 11:49 | NM ---
EXAM DATE: 10/17/2017 11:44 AM EDT AGE/SEX: 47 years / Male INDICATIONS:Angina. . Substernal chest pain. CLINICAL DATA: This is the patient's initial encounter. Patient reports that signs and symptoms have been present for 1 day and indicates a pain score of 6/10. MEDICAL/SURGICAL HISTORY: Hypertension. Diabetes mellitus type II. None. COMPARISON: No prior exams available for comparison. DOSE: 11 mCi Tc 99m Myoview at rest 35 mCi [id number] at stress 0.4 mg Lexiscan STRESS SYMPTOMS: Dyspnea and heart racing. EJECTION FRACTION: 49 % TECHNIQUE: The patient underwent pharmacologic stress with infusion of prescribed dose. Continuous ECG tracing was monitored during stress. Gated SPECT imaging was performed after stress and conventi onal SPECT imaging was performed at rest. The examination was performed on a SPECT/CT scanner, both attenuation and non-corrected datasets were reviewed. FINDINGS: Distribution: The maximum perfused segment at stress is in the inferior wall. Perfusion Study: The pattern of perfusion at stress is within normal limits. Gated Study: There are intact wall motion and wall thickening without hypokinetic or dyskinetic segm ents. The ejection fraction is calculated at 49%. RISK CATEGORY: Intermediate (1-3 % Annual Mortality Rate) CONCLUSION: 1. No reversible perfusion defects to suggest ischemia. 2. Ejection fraction 49%. Electronically signed by: Samy Upton MD 10/17/2017 11:47 AM EDT
--- NOTE | 2017-10-17 12:10 | ECG ---
Date Performed: 10/16/2017 Time Performed: 16:37:29 PTAGE: 47 years EKG: Sinus rhythm NORMAL ECG PREVIOUS TRACING : 10/16/2017 07.08 DOCTOR: Jovanny Echavarria Interpretating Date/Time 10/17/2017 12:10:01
--- NOTE | 2017-10-26 17:45 | TR ---
Date Performed: 10/17/2017 Time Performed: 10:39:31 DOCTOR: Jovanny Echavarria DRUG LIST: CLINICAL HISTORY: CHEST PAIN REASON FOR TEST: CHEST PAIN REASON FOR ENDING: OBSERVATION: CONCLUSION: Lexiscan stress test was performed under standard four minute protocol. Radionuclide was injected one minute prior to ending the test. No electrocardiographic abormalities were present to suggest ischemia. Nuclear imaging and interpretation are pending. COMMENTS:
== END 2017-10-17 17:58 | disposition home or self-care (01) ==
LOC: NEPFCDU 06:50 → NEDA 06:50 → NEPE 06:50 → NEPFCDU 14:45
PROVIDERS: ADMIT Internal Medicine Cardiovascular Disease; ATTEND Internal Medicine Cardiovascular Disease